=== PATIENT | male | born 1965 | race Two or more races ===

== ENCOUNTER 2023-11-22 20:26 | Inpatient (IN) | payer OTHER ==
[2023-11-22 21:55] VITALS: BMI 24.0
[2023-11-22] MEDS ORDERED: diazePAM 5 MG TABLET PO PRN (22:42)
[2023-11-22] MEDS ORDERED: hydrOXYzine PAMOATE 25 MG CAPSULE (FP) PO PRN (22:43)
[2023-11-22] MEDS ORDERED: BENZONATATE 200 MG CAPSULE PO PRN (22:43)
[2023-11-22] MEDS ORDERED: guaiFENesin 600 MG TABLET.ER (FP) PO PRN (22:43)
[2023-11-22] MEDS ORDERED: NALOXONE HCL 0.4 MG/ML VIAL IM PRN (22:43)
[2023-11-22] MEDS ORDERED: NALOXONE HCL (KLOXXADO) 8 MG SPRAY NS PRN (22:43)
[2023-11-22] MEDS ORDERED: P-EPHED 60MG/TRIPROLIDI 2.5MG TABLET PO PRN (22:43)
[2023-11-22] MEDS ORDERED: IBUPROFEN 600 MG TABLET (FP) PO PRN (22:43)
[2023-11-22] MEDS ORDERED: LOPERAMIDE HCL 2 MG CAPSULE PO PRN (22:43)
[2023-11-22] MEDS ORDERED: DICYCLOMINE HCL 10 MG CAPSULE PO PRN (22:43)
[2023-11-22] MEDS ORDERED: MAGNESIUM HYDROX 2400MG/30ML ORAL SUSPENSION 30 ML CUP PO PRN (22:43)
[2023-11-22] MEDS ORDERED: ACETAMINOPHEN 325 MG TABLET (FP) PO PRN (22:43)
[2023-11-22] MEDS ORDERED: IBUPROFEN 400 MG TABLET (FP) PO PRN (22:43)
[2023-11-22] MEDS ORDERED: MAG HYDROX/AL HYDROX/SIMETH 30 ML UNIT-DOSE CUP PO PRN (22:43)
[2023-11-22] MEDS ORDERED: POLYETHYLENE GLYCOL (HEALTHYLAX) 3350 17 GM PACKET PO PRN (22:43)
[2023-11-22] MEDS ORDERED: ONDANSETRON *ODT* 4 MG TABLET SL PRN (22:43)
[2023-11-22] MEDS ORDERED: cloNIDine HCL 0.1 MG TABLET PO PRN (22:48)
[2023-11-22] MEDS ORDERED: ALBUTEROL SO4 HFA INHALER IH PRN (22:57)
[2023-11-23] MEDS: PRENATAL VITAMINS W/ FOLIC ACID TABLET (FP) PO SCH (10:17)
[2023-11-23] MEDS: METHOCARBAMOL 500 MG TABLET PO PRN (10:18)
[2023-11-23] MEDS ORDERED: diazePAM 5 MG TABLET PO PRN (10:22)
[2023-11-23] MEDS: diazePAM 5 MG TABLET PO SCH (10:43)
[2023-11-23 15:04] LABS: HEMATOCRIT 44.7 % (35.4-49); HEMOGLOBIN 15.5 GM/dL (11.7-16.9); MCH 32.4 pg (25.7-33.7); MCHC 34.7 g/dl (32.0-35.9); MEAN CELL VOLUME 93.2 fl (80-96); MEAN PLT VOLUME 8.5 fl (7.5-11.1); PLATELET COUNT 170 10^3/uL (134-434); RDW 13.7 % (11.9-15.9); WHITE BLOOD COUNT 9.7 K/mm3 (4.0-10.0)
[2023-11-23 15:06] LABS: POTASSIUM 3.1 mmol/L (3.5-5.1)
[2023-11-23 15:11] LABS: ALBUMIN 2.8 g/dl (3.4-5.0); BLOOD UREA NITROGEN 16.4 mg/dL (7-18); CALCIUM 8.7 mg/dL (8.5-10.1)
[2023-11-23 15:14] LABS: CREATININE 0.7 mg/dL (0.55-1.3)
[2023-11-23 15:16] LABS: BILIRUBIN,TOTAL 0.9 mg/dL (0.2-1); TOT PROT 6.3 g/dl (6.4-8.2)
[2023-11-23] MEDS: traZODone HCL 50 MG TABLET (FP) PO SCH (22:36)
[2023-11-23] MEDS: MELATONIN 5 MG TABLETS PO SCH (22:36)
[2023-11-23] MEDS: THIAMINE HCL 100 MG TABLET (FP) PO SCH (22:36)
[2023-11-23] MEDS: BENZOCAINE/MENTHOL (CHLORASEPTIC ) LOZENGE MM PRN (23:49)
[2023-11-24] MEDS: POTASSIUM CHLORIDE ORAL LIQUID 20 MEQ/15 ML PO SCH (10:34)
[2023-11-24] MEDS: POTASSIUM CHLORIDE ORAL LIQUID 20 MEQ/15 ML PO ONE (10:57)
[2023-11-25] MEDS: diazePAM 5 MG TABLET PO SCH (05:55)
[2023-11-26] MEDS: diazePAM 5 MG TABLET PO SCH (06:10)
[2023-11-26] MEDS: BISMUTH SUBSALICYLATE 524 MG/30 ML PO PRN (06:12)
[2023-11-26] MEDS ORDERED: ALBUTEROL SO4 HFA INHALER IH PRN (11:02)
[2023-11-27] MEDS: diazePAM 5 MG TABLET PO ONE (05:41)
[2023-11-27] MEDS: POTASSIUM CHLORIDE ORAL LIQUID 20 MEQ/15 ML PO ONE (13:22)
[2023-11-28 09:07] VITALS: BP 100/60; PULSE 76; RESP 16; TEMP 97.6
== END 2023-11-28 10:47 | disposition other institution (70) | DRG 773 ==
LOC: YASAS 20:26 → Y3N 11-23 04:00
PROVIDERS: ADMIT Allergy & Immunology; ATTEND Surgery
PROC: HZ2ZZZZ Detoxification Services for Substance Abuse Treatment (ICD-10-PCS; principal; 2023-11-23)
DX: F13.230 Sedative, hypnotic or anxiolytic dependence with withdrawal, uncomplicated (principal); F11.10 Opioid abuse, uncomplicated; F14.20 Cocaine dependence, uncomplicated; F17.210 Nicotine dependence, cigarettes, uncomplicated; F19.24 Other psychoactive substance dependence with psychoactive substance-induced mood disorder; F31.9 Bipolar disorder, unspecified; E87.6 Hypokalemia; J45.909 Unspecified asthma, uncomplicated; B18.2 Chronic viral hepatitis C; M54.50 Low back pain, unspecified; G89.29 Other chronic pain; G47.00 Insomnia, unspecified; Z59.02 Unsheltered homelessness
CPT/HCPCS: 0241U-QW; 36415; 80053; 84132; 85027; 86780; 87635; 93005; 93010

== ENCOUNTER 2025-03-12 13:10 | Inpatient (IN) | payer OTHER ==
[2025-03-12] MEDS ORDERED: NALOXONE HCL 0.4 MG/ML VIAL IVPUSH PRN (14:24)
[2025-03-12] MEDS ORDERED: METHOCARBAMOL 500 MG TABLET PO PRN (14:24)
[2025-03-12] MEDS ORDERED: BENZOCAINE/MENTHOL (CHLORASEPTIC ) LOZENGE MM PRN (14:24)
[2025-03-12] MEDS ORDERED: ACETAMINOPHEN 325 MG TABLET (FP) PO PRN (14:24)
[2025-03-12] MEDS ORDERED: NALOXONE (NARCAN) HCL 4 MG/0.1 ML SPRAY NS PRN (14:24)
[2025-03-12] MEDS ORDERED: IBUPROFEN 400 MG TABLET (FP) PO PRN (14:24)
[2025-03-12] MEDS ORDERED: hydrOXYzine PAMOATE 25 MG CAPSULE (FP) PO PRN (14:24)
[2025-03-12] MEDS ORDERED: MAG HYDROX/AL HYDROX/SIMETH 30 ML UNIT-DOSE CUP PO PRN (14:24)
[2025-03-12] MEDS ORDERED: POLYETHYLENE GLYCOL (HEALTHYLAX) 3350 17 GM PACKET PO PRN (14:24)
[2025-03-12] MEDS ORDERED: IBUPROFEN 600 MG TABLET (FP) PO PRN (14:24)
[2025-03-12] MEDS ORDERED: MAGNESIUM HYDROX 2400MG/30ML ORAL SUSPENSION 30 ML CUP PO PRN (14:24)
[2025-03-12] MEDS ORDERED: LOPERAMIDE HCL 2 MG CAPSULE PO PRN (14:24)
[2025-03-12] MEDS ORDERED: BENZONATATE 200 MG CAPSULE PO PRN (14:24)
[2025-03-12] MEDS ORDERED: guaiFENesin 600 MG TABLET.ER (FP) PO PRN (14:24)
[2025-03-12] MEDS ORDERED: ALBUTEROL SO4 HFA INHALER IH PRN (14:31)
[2025-03-12] MEDS ORDERED: TUBERCULIN PPD 5 TU/0.1ML VIAL ID ONE (16:31)
[2025-03-12] MEDS: MELATONIN 5 MG TABLETS PO SCH (21:04)
[2025-03-12] MEDS: THIAMINE 100 MG TABLET PO SCH (21:04)
[2025-03-12] MEDS: traZODone HCL 100 MG TABLET (FP) PO SCH (21:05)
[2025-03-12] MEDS: BUPRENORPHINE/NALOXONE 8 MG/2 MG FILM PACKET SL SCH (21:05)
[2025-03-13] MEDS: PRENATAL VITAMINS W/ FOLIC ACID TABLET (FP) PO SCH (10:05)
[2025-03-13] MEDS: traZODone HCL 50 MG TABLET (FP) PO SCH (21:27)
[2025-03-14] MEDS: ESCITALOPRAM OXALATE 20 MG TABLET PO SCH (11:35)
[2025-04-07 22:00] VITALS: RESP 16
[2025-04-08 05:33] VITALS: BP 119/74; PULSE 60; TEMP 97.3
== END 2025-04-08 10:42 | disposition home or self-care (01) | DRG 772 ==
LOC: YASAS 13:10 → Y3W 13:15
PROVIDERS: ADMIT Psychiatry & Neurology Pain Medicine; ATTEND Psychiatry & Neurology Pain Medicine
PROC: HZ42ZZZ Group Counseling for Substance Abuse Treatment, Cognitive-Behavioral (ICD-10-PCS; principal; 2025-03-12)
DX: F11.20 Opioid dependence, uncomplicated (principal); F10.20 Alcohol dependence, uncomplicated; F14.20 Cocaine dependence, uncomplicated; F13.10 Sedative, hypnotic or anxiolytic abuse, uncomplicated; F17.210 Nicotine dependence, cigarettes, uncomplicated; F19.282 Other psychoactive substance dependence with psychoactive substance-induced sleep disorder; F19.24 Other psychoactive substance dependence with psychoactive substance-induced mood disorder; F43.10 Post-traumatic stress disorder, unspecified; Z85.05 Personal history of malignant neoplasm of liver; Z86.19 Personal history of other infectious and parasitic diseases
CPT/HCPCS: 82962